=== PATIENT | male | born 1980 | race Asian ===

== ENCOUNTER 2018-07-11 20:55 | Emergency (ER) | payer MEDICAID ==
[2018-07-11] MEDS ORDERED: Ketorolac 60 MG/2 ML SDV IM ONE (21:11)
--- NOTE | 2018-07-11 21:20 | EDM.PDOC ---
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 Denies taking any NSAIDs or Tylenol he said the pain was a dull throbbing about 6 out of 10. Denies any numbness tingling or paresthesia he does have a history of spinal stenosis He denies any trauma to the shoulder or dislocations in the past Onset: Today Duration: Hour(s): Quality: Reports: Dull, Throbbing Severity: Moderate Improves with: Reports: Cold Therapy Right Shoulder Pain Score (Numeric/FACES): 10 - Related Data Allergies Allergy/AdvReac Type Severity Reaction Status Date / Time No Known Allergies Allergy Verified 07/11/18 21:01 Home Meds: Home Meds Baclofen 10 mg PO BEDTIME 07/11/18 [History] FLUoxetine HCl [Fluoxetine HCl] 40 mg PO DAILY 07/11/18 [History] Gabapentin [Neurontin] 300 mg PO TID 07/11/18 [History] Past Medical History Musculoskeletal History: Reports: Other (See Below) Other Musculoskeletal History: cervical spinal stenosis Social & Family History - Tobacco Use Smoking Status *Q: Current Status Unknown Review of Systems - Review of Systems Review Of Systems: See Below Constitutional: Reports: No Symptoms Respiratory: Reports: No Symptoms GI/Abdominal: Reports: No Symptoms Musculoskeletal: Reports: Shoulder Pain. Denies: Neck Pain, Arm Pain, Back Pain , Joint Swelling Skin: Reports: No Symptoms Neurological: Reports: No Symptoms. Denies: Dizziness, Headache, Numbness, Tingling, Weakness Psychiatric: Reports: No Symptoms ED EXAM, GENERAL - Physical Exam Exam: See Below Exam Limited By: No Limitations General Appearance: Alert, WD/WN, No Apparent Distress, Other Neck: Normal Inspection, Non-Tender, Full Range of Motion Respiratory/Chest: No Respiratory Distress, No Accessory Muscle Use Extremities: Normal Inspection, Normal Range of Motion, Non-Tender, Other (Exam to right shoulder patient has full range of motion normal Apley's maneuver normal speeds normal apprehension test neurovascularly intact and normal radius ulna pulse normal sensation no edema or ecchymosis was noted) Neurological: Alert, Oriented, CN II-XII Intact, Normal Cognition, Normal Gait, Normal Reflexes, No Motor/Sensory Deficits Psychiatric: Normal Affect, Normal Mood Skin Exam: Warm, Dry, Intact, Normal Color Course - Vital Signs Last Recorded V/S: Last Vital Signs Temp 37.1 C 07/11/18 21:03 Pulse 91 07/11/18 21:03 Resp 18 07/11/18 21:03 BP 149/100 H 07/11/18 21:03 Pulse Ox 98 07/11/18 21:03 - Orders/Labs/Meds Meds: Medications Discontinued Medications Generic Name Dose Route Start Last Admin Trade Name Richard PRN Reason Stop Dose Admin Ketorolac Tromethamine 60 mg 07/11/18 21:11 07/11/18 21:18 Toradol IM 07/11/18 21:12 60 mg ONETIME ONE Administration Departure - Departure Time of Disposition: 21:20 Disposition: Home, Self-Care 01 Condition: Good Clinical Impression: Right shoulder pain - Discharge Information *PRESCRIPTION DRUG MONITORING PROGRAM REVIEWED*: No *COPY OF PRESCRIPTION DRUG MONITORING REPORT IN PATIENT ANDREA: No Instructions: Shoulder Pain Referrals: Pool Hollins MD [Primary Care Provider] - Forms: ED Department Discharge - Problem List & Annotations (1) Right shoulder pain SNOMED Code(s): 82359696, 23198447 Code(s): M25.511 - PAIN IN RIGHT SHOULDER Status: Acute - Assessment/Plan Plan: Patient was given IM Toradol 60 mg told to ice the area wrist area as well as possible patient has follow-up in the morning with his primary care provider patient gave verbal understanding needs and signs and symptoms to return to the ER such as coldness to the hand or extremity painful numbness or tingling
== END 2018-07-11 21:36 | disposition home or self-care (01) ==
LOC: VM.ED 20:55
DX: M25.511 Pain in right shoulder (principal); Z79.899 Other long term (current) drug therapy
CPT/HCPCS: 96372; 99283; J1885

== ENCOUNTER 2019-02-06 10:23 | Emergency (ER) | payer MEDICAID ==
--- NOTE | 2019-02-06 10:59 | EDM.PDOC ---
ED HPI GENERAL MEDICAL PROBLEM - General Chief Complaint: Back Pain or Injury Time Seen by Provider: 02/06/19 10:40 Source of Information: Reports: Patient, Family - History of Present Illness INITIAL COMMENTS - FREE TEXT/NARRATIVE: Patient states that he fell down the stairs. This happened on Thursday night. He does have pleuritic pain. He is calmly by significant other. Pain is on the right lower lateral aspect. No previous fractures of ribs that he is aware of. He does have significant history of right shoulder pain spinal stenosis and difficulty with ambulation no formal surgical intervention. He does use medical marijuana. He is on Neurontin. I did not see any suspicious signs of narcotic abuse. I gave him a shot of Toradol today and tramadol. I gave him some recommendations for his rib fracture. X-rays did not show any pnemo. I also gave him a Randy wrap that he can wrap around his lower ribs and I did caution him on not going to high as that may cause further risk of pneumonia. Onset: Other (Thursday) Duration: Getting Worse Location: Reports: Chest Quality: Reports: Stabbing Severity: Severe Improves with: Reports: Immobilization Worsens with: Reports: Movement Context: Reports: Trauma Associated Symptoms: Reports: Other (He is right-handed. He does have difficulty lifting his right arm.) Right Middle Back Pain Score (Numeric/FACES): 10 - Related Data Allergies Allergy/AdvReac Type Severity Reaction Status Date / Time No Known Allergies Allergy Verified 02/06/19 10:40 Home Meds: Home Meds Baclofen 10 mg PO BEDTIME 07/11/18 [History] FLUoxetine HCl [Fluoxetine HCl] 40 mg PO DAILY 07/11/18 [History] Gabapentin [Neurontin] 300 mg PO TID 07/11/18 [History] traMADol [Ultram] 50 - 100 mg PO Q4H PRN #20 tab 02/06/19 [Rx] Past Medical History Musculoskeletal History: Reports: Back Pain, Chronic, Other (See Below) Other Musculoskeletal History: cervical spinal stenosis Psychiatric History: Reports: Anxiety, Depression Social & Family History - Tobacco Use Smoking Status *Q: Light Tobacco Smoker Years of Tobacco use: 10 Packs/Tins Daily: 0.2 - Recreational Drug Use Recreational Drug Use: No ED ROS GENERAL - Review of Systems Review Of Systems: Comprehensive ROS is negative, except as noted in HPI. ED EXAM, UPPER BACK/NECK PAIN - Physical Exam Exam: See Below Exam Limited By: No Limitations General Appearance: Alert, Moderate Distress Cardiovascular/Respiratory: Regular Rate, Rhythm, No M/R/G, Normal Peripheral Pulses, No JVD, Normal Breath Sounds, No Respiratory Distress, Other (Pleuritic pain is noted. He does have pain on palpation about the lower ribs on the right side lateral aspect. The patient's blood pressure came down to 120 systolic upon departure. ) Neurologic: Normal Mood/Affect, Oriented x 3 Psychiatric: Normal Affect Skin Exam: Normal Color, Warm/Dry Course - Vital Signs Last Recorded V/S: Last Vital Signs Temp 36.6 C 02/06/19 10:28 Pulse 74 02/06/19 10:28 Resp 16 02/06/19 10:28 BP 146/105 H 02/06/19 10:28 Pulse Ox 99 02/06/19 10:28 - Orders/Labs/Meds Meds: Medications Discontinued Medications Generic Name Dose Route Start Last Admin Trade Name Ricoq PRN Reason Stop Dose Admin Ketorolac Tromethamine 60 mg 02/06/19 11:53 02/06/19 11:55 Toradol IM 02/06/19 11:54 60 mg ONETIME ONE Administration Tramadol HCl 1 packet 02/06/19 11:53 02/06/19 12:03 Take Home: Tramadol 50 Mg, 4 Tab Pack PO 02/06/19 11:54 1 packet ONETIME ONE Administration Departure - Departure Time of Disposition: 11:42 Disposition: Home, Self-Care 01 Condition: Good Clinical Impression: Right rib fracture Qualifiers: Encounter type: initial encounter Rib fracture type: single rib Fracture type: closed Qualified Code(s): S22.31XA - Fracture of one rib, right side, initial encounter for closed fracture - Discharge Information *PRESCRIPTION DRUG MONITORING PROGRAM REVIEWED*: Yes *COPY OF PRESCRIPTION DRUG MONITORING REPORT IN PATIENT ANDREA: Yes Prescriptions: traMADol [Ultram] 50 - 100 mg PO Q4H PRN #20 tab PRN Reason: Pain (Severe 7-10) Instructions: Rib Fracture, [id number] Referrals: Pool Hollins MD [Primary Care Provider] - Forms: ED Department Discharge Additional Instructions: You have at least one rib fracture on the right. Gentle range of motion. Ice may help. Heat may help. Ibuprofen 400-600 3-4 times a day. Will take 3-4 weeks to get about 85% better.
[2019-02-06] MEDS ORDERED: Take Home: traMADol 50 MG, 4 Tab Pack PO ONE (11:53)
[2019-02-06] MEDS ORDERED: Ketorolac 60 MG/2 ML SDV IM ONE (11:53)
--- NOTE | 2019-02-06 12:18 | CR ---
[id number] RAD/RAD Ribs Right W PA Chest Exam: RAD Ribs Right W PA Chest Clinical Data: TRAUMA COMPARISON: NO PREVIOUS SIMILAR EXAM IS AVAILABLE FINDINGS: There is a nondisplaced fracture of the posterior right 10th rib Question raised if there is any need to image the liver with contrast CT IMPRESSION: NONDISPLACED LOWER RIGHT RIB FRACTURE Mustapha Baker MD 02/06/19 3152 Thank you for allowing us to participate in the care of your patient.
== END 2019-02-06 12:04 | disposition home or self-care (01) ==
LOC: VM.ED 10:23
DX: S22.31XA Fracture of one rib, right side, initial encounter for closed fracture (principal); F17.210 Nicotine dependence, cigarettes, uncomplicated; W10.9XXA Fall (on) (from) unspecified stairs and steps, initial encounter
CPT/HCPCS: 71101-RT; 96372; 99283-25; A9270-GY; J1885

== ENCOUNTER 2019-12-07 06:50 | Day surgery (SDC) | payer MEDICAID ==
[2019-12-07] MEDS ORDERED: Lactated Ringers 1,000 ML IV SCH (07:00)
[2019-12-07] MEDS ORDERED: fentaNYL 100 MCG/2 ML SDV ONE (07:29)
[2019-12-07] MEDS ORDERED: Propofol 200 MG/20 ML SDV ONE ×2 (07:30→08:57)
--- NOTE | 2019-12-08 09:23 | OR ---
PREOPERATIVE DIAGNOSIS: Intermittent rectal bleeding. POSTOPERATIVE DIAGNOSES: 1. Colon polyps x2. 2. Mild internal hemorrhoids. 3. No obvious source of bleeding seen including diverticula, inflammation, masses, or arteriovenous malformations. ANESTHESIA: MAC anesthesia. COMPLICATIONS: None. BLOOD LOSS: Minimal. FINDINGS: 1. Cecal polyp, 2 mm, cold forceps. 2. Sigmoid polyp, 2 mm, cold forceps. 3. Mild internal hemorrhoids. 4. No other source of bleeding identified. START TIME: 0851. CECUM TIME: 0853. STOP TIME: 906. BOWEL PREP: [place] class 3. INDICATION FOR PROCEDURE: Mr. Fuchs is a 39-year-old male who has been having some intermittent rectal bleeding for over the last year. It occurs about twice a month. He says it occurs with bowel movements both firm and soft. He did say he has occasionally some associated mild abdominal pain. A maternal aunt has a history of colorectal cancer. No family history of inflammatory bowel disease and he has never had a colonoscopy. DETAILS OF PROCEDURE: After informed consent was obtained, the patient was brought to the procedure room and placed in left lateral decubitus position. MAC anesthesia was induced by Anesthesia colleagues. The endoscope equipped with an Endocuff device was introduced into the rectum and advanced all the way to the cecum. The appendiceal orifice and ileocecal valve were photographed. The colonoscope was then slowly withdrawn. There were no findings other than what was mentioned above in the findings section. Notably, I did not see any evidence of inflammation, large masses, diverticula, or AVMs. A retroflexed view was obtained and demonstrated mild internal hemorrhoids. He was awoken from MAC anesthesia by Anesthesia colleagues without incident. PATHOLOGY: RECOMMENDATIONS: 1. Repeat colonoscopy in years. 2. Suspect bleeding is related to mild internal hemorrhoids. There was no evidence seen of inflammatory bowel disease, masses, or other sources of blood loss. 3. I have a low suspicion for an upper GI source given the fact that he reports seeing red blood just with bowel movements and he is clearly not having any sort of significant volume of blood loss. RKM: 12/07/2019 09:15:05 MODL: 12/07/2019 14:26:48 /[id number]
== END 2019-12-07 10:28 | disposition home or self-care (01) ==
LOC: VM.SDS 06:50
PROVIDERS: ATTEND Student in an Organized Health Care Education/Training Program
DX: D12.0 Benign neoplasm of cecum (principal); K63.5 Polyp of colon; K64.8 Other hemorrhoids; G89.29 Other chronic pain; F32.9 Major depressive disorder, single episode, unspecified; F41.9 Anxiety disorder, unspecified; Z80.0 Family history of malignant neoplasm of digestive organs; Z79.899 Other long term (current) drug therapy; Z87.891 Personal history of nicotine dependence; Z01.812 Encounter for preprocedural laboratory examination; Z20.828 Contact with and (suspected) exposure to other viral communicable diseases
CPT/HCPCS: 00811; 45380; 87635; J2704; J3010; J7120; U0002

== ENCOUNTER 2024-08-08 10:03 | Emergency (ER) | payer BC, MEDICAID ==
[2024-08-08 10:44] LABS: BASOPHILS ABSOLUTE AUTO 0.1 x10^3/uL (0.0-0.2); BASOPHILS PERCENT AUTO 0.8 % (0.2-1.2); EOSINOPHILS ABSOLUTE AUTO 0.2 x10^3/uL (0.0-0.5); EOSINOPHILS PERCENT AUTO 1.8 % (0.0-4.0); HEMATOCRIT 44.7 % (40.0-52.0); IMMATURE GRAN ABSOLUTE AUTO 0.01 x10^3/uL (0.00-0.07); LYMPHOCYTES ABSOLUTE AUTO 4.1 x10^3/uL (1.0-4.8); LYMPHOCYTES PERCENT AUTO 44.3 % (25.0-50.0); MEAN CORPUSCULAR HEMOGLOBIN 29.6 pg (26.0-32.0); MEAN CORPUSCULAR HGB CONC 33.6 g/dL (32.0-36.0); MEAN CORPUSCULAR VOLUME 88.2 fL (78.0-93.0); MONOCYTES ABSOLUTE AUTO 0.6 x10^3/uL (0.0-0.8); MONOCYTES PERCENT AUTO 6.8 % (2.0-11.0); NEUTROPHILS ABSOLUTE AUTO 4.3 x10^3/uL (1.8-7.7); NEUTROPHILS PERCENT AUTO 46.2 % (50.0-80.0); PLATELET COUNT,PLT 269 x10^3/uL (130-400); RED BLOOD CELL COUNT 5.07 x10^6/uL (4.5-6.0); WHITE BLOOD CELL COUNT,WBC 9.3 x10^3/uL (4.0-10.0)
[2024-08-08 11:00] LABS: APPEARANCE,URINE CLEAR (CLEAR); BILIRUBIN,URINE NEGATIVE (NEGATIVE); COLOR,URINE YELLOW (YELLOW); GLUCOSE,URINE NEGATIVE (NEGATIVE); KETONES,URINE NEGATIVE (NEGATIVE); LEUKOCYTE ESTERASE,URINE NEGATIVE (NEGATIVE); NITRITE,URINE NEGATIVE (NEGATIVE); OCCULT BLOOD,URINE NEGATIVE (NEGATIVE); PH,URINE 5.5 (5.0-8.0); PROTEIN,URINE TRACE mg/dL (NEGATIVE); UROBILINOGEN,URINE 0.2 EU/dL (0.2)
[2024-08-08 11:03] LABS: AMPHETAMINES SCREEN, URINE NEGATIVE (NEGATIVE); BARBITURATE SCREEN,URINE NEGATIVE (NEGATIVE); THC SCREEN,URINE 50 NG/ML POSITIVE (NEGATIVE)
[2024-08-08 11:04] LABS: A/G RATIO 1.29; ALANINE AMINOTRANSFERASE,ALT 58 U/L (16-63); ALBUMIN 4.5 g/dL (3.4-5.0); ALKALINE PHOSPHATASE 57 U/L (46-116); ANION GAP 14.8 mmol/L (5-15); ASPARTATE AMNIOTRANSFERASE,AST 33 U/L (15-37); BILIRUBIN TOTAL 0.5 mg/dL (0.2-1.0); BLOOD UREA NITROGEN,BUN 13 mg/dL (7-18); C-REACTIVE PROTEIN < 0.50 mg/dL (<=0.50); CALCIUM 9.3 mg/dL (8.5-10.1); CARBON DIOXIDE,CO2 26 mmol/L (21-32); CHLORIDE,CL 107 mmol/L (98-107); CREATININE 1.1 mg/dL (0.70-1.30); ESTIMATED GFR 84 mL/min (>=60); GLUCOSE RANDOM 107 mg/dL (70-99); MAGNESIUM 2.5 mg/dL (1.8-2.4); POTASSIUM,K 3.8 mmol/L (3.5-5.1); SODIUM,NA 144 mmol/L (136-145)
[2024-08-08 11:04] LABS: BENZODIAZEPINES SCREEN,URINE NEGATIVE (NEGATIVE); BUPRENORPHINE SCREEN,URINE NEGATIVE (NEGATIVE); COCAINE METABOLITES,URINE NEGATIVE (NEGATIVE); METHADONE SCREEN, URINE NEGATIVE (NEGATIVE); METHAMPHETAMINE SCREEN, URINE NEGATIVE (NEGATIVE); OXYCODONE SCREEN,URINE NEGATIVE (NEGATIVE); PCP SCREEN,URINE NEGATIVE (NEGATIVE)
[2024-08-08 11:05] LABS: ETHANOL BLOOD MEDICAL < 3 mg/dL (0-3)
[2024-08-08 11:07] LABS: BACTERIA,URINE FEW /HPF (NOT SEEN); MUCUS,URINE MODERATE /LPF (NOT SEEN); RBC,URINE 0-5 /HPF (NOT SEEN); SQUAMOUS EPITHELIAL CELLS,UR RARE /HPF (NOT SEEN); WBC,URINE 0-5 /HPF (NOT SEEN)
== END 2024-08-08 11:33 | disposition home or self-care (01) ==
LOC: VM.ED 10:03
DX: F32.A Depression, unspecified (principal); Z79.899 Other long term (current) drug therapy
CPT/HCPCS: 36415; 80053; 80305-QW; 80307; 81001; 82140; 83735; 85025; 86140; 99284; 99285